=== PATIENT | male | born 1990 | race Hispanic/Latino ===

== ENCOUNTER 2018-01-05 20:12 | Emergency (ER) | payer MEDICAID ==
[2018-01-05 21:10] LABS: RAPID GROUP A STREP NEGATIVE (NEGATIVE)
== END 2018-01-05 21:24 | disposition home or self-care (01) ==
LOC: EDH 20:12
DX: J01.10 Acute frontal sinusitis, unspecified (principal); J30.9 Allergic rhinitis, unspecified
CPT/HCPCS: 71045; 87804; 87880

== ENCOUNTER 2018-05-26 13:16 | Emergency (ER) | payer MEDICAID, OTHER ==
[2018-05-26] MEDS ORDERED: ACETAMINOPHEN EXTRA STRENGTH 500 MG TABLET ONE (13:29)
[2018-05-26 14:11] LABS: RAPID GROUP A STREP NEGATIVE (NEGATIVE)
== END 2018-05-26 14:30 | disposition home or self-care (01) ==
LOC: EDH 13:16
DX: B34.9 Viral infection, unspecified (principal); J06.9 Acute upper respiratory infection, unspecified
CPT/HCPCS: 87804; 87880

== ENCOUNTER 2019-03-28 09:42 | Emergency (ER) | payer OTHER | END 2019-03-28 10:29 | disposition home or self-care (01) | LOC: EDH 09:42 | DX: H00.024 Hordeolum internum left upper eyelid (principal) | CPT/HCPCS: 99281 ==

== ENCOUNTER 2022-03-30 14:53 | Emergency (ER) | payer OTHER ==
[~2022-03-30] VITALS: Ht 162.6 cm; Wt 79.4 kg
[2022-03-30 15:35] LABS: BASOPHILS % (AUTO) 0.2 % (0.0-5.0); EOSINOPHILS % (AUTO) 1.6 % (0.0-8.0); HEMATOCRIT 45.6 % (42-54); LYMPHOCYTES % (AUTO) 22.6 % (21.0-51.0); MEAN CORPUSCULAR HEMOGLOBIN 30.2 pg (27.0-33.0); MEAN CORPUSCULAR HGB CONC 32.9 g/dL (32.0-36.0); MEAN CORPUSCULAR VOLUME 91.8 fL (79-99); MONOCYTES % (AUTO) 20.1 % (3.0-13.0); NEUTROPHILS % (AUTO) 55.1 % (40.0-77.0); PLATELET COUNT (AUTO) 241 K/uL (130-400); RED BLOOD CELL COUNT(AUTO) 4.97 MIL/uL (4.50-6.20); RED CELL DISTRIBUTION WIDTH 12.9 % (11.0-15.5); WHITE BLOOD COUNT (AUTO) 4.5 K/uL (4.8-10.8)
[2022-03-30 15:39] LABS: APPEARANCE,URINE Clear (CLEAR); BILIRUBIN,URINE Negative (NEGATIVE); COLOR,URINE Yellow (YELLOW); GLUCOSE, URINE (UA) Negative (NEGATIVE); KETONES,URINE Negative (NEGATIVE); LEUKOCYTE ESTERASE ,URINE Negative (NEGATIVE); NITRATE,URINE Negative (NEGATIVE); OCCULT BLOOD,URINE Trace (NEGATIVE); PROTEIN,URINE Negative (NEGATIVE); UROBILINOGEN,URINE 0.2 mg/dL (0.2-1.0)
[2022-03-30 15:51] LABS: BACTERIA,URINE Rare /HPF (None Seen); CARBON DIOXIDE 22 mmol/L (21-32); CHLORIDE 103 mmol/L (101-111); CREATININE 0.9 mg/dL (0.5-1.5); GLOMERULAR FILTR. RATE CALC 103 mL/min (>60); GLUCOSE,RANDOM 95 mg/dL (70-105); MUCUS,URINE Few LPF (None Seen); POTASSIUM 3.5 mmol/L (3.5-5.1); SODIUM SERUM 136 mmol/L (136-145); SQUAMOUS EPITHELIAL CELL,UR Rare /HPF (0-2); UREA NITROGEN, BLOOD 17 mg/dL (7-18); WBC,URINE 0-1 /HPF (0-1)
[2022-03-30 15:54] LABS: ALANINE AMINOTRANSFERASE 31 U/L (12-78); ASPARTATE AMINOTRANSFERASE 22 U/L (10-37); BILIRUBIN,TOTAL 0.3 mg/dL (0.2-1.0); TOTAL PROTEIN, SERUM 7.6 g/dL (6.0-8.3)
[2022-03-30 16:02] LABS: LIPASE < 50 U/L (114-286)
[2022-03-30 16:51] VITALS: BP 118/89
[2022-03-31] MEDS ORDERED: AZIT250T9 PO (08:13)
[2022-03-31] MEDS ORDERED: LOPE2CAP PO (08:13)
[2022-03-31] MEDS ORDERED: ONDA-104 PO (08:13)
== END 2022-03-30 17:33 | disposition home or self-care (01) ==
LOC: EDH 14:53
DX: A08.4 Viral intestinal infection, unspecified (principal)
CPT/HCPCS: 36415; 80053; 81001; 83690; 85025; 87804

== ENCOUNTER 2022-03-31 03:38 | Emergency (ER) | payer OTHER ==
[~2022-03-31] VITALS: Ht 162.6 cm; Wt 83.9 kg
[2022-03-31] MEDS ORDERED: ONDANSETRON 4MG INJ ONE (04:13)
[2022-03-31] MEDS ORDERED: MORPHINE 4 MG SYG ONE (04:13)
[2022-03-31 04:17] LABS: BASOPHILS % (AUTO) 0.2 % (0.0-5.0); EOSINOPHILS % (AUTO) 0.5 % (0.0-8.0); HEMATOCRIT 41.7 % (42-54); LYMPHOCYTES % (AUTO) 5.3 % (21.0-51.0); MEAN CORPUSCULAR HEMOGLOBIN 31.4 pg (27.0-33.0); MEAN CORPUSCULAR HGB CONC 34.5 g/dL (32.0-36.0); MEAN CORPUSCULAR VOLUME 90.8 fL (79-99); MONOCYTES % (AUTO) 6.5 % (3.0-13.0); NEUTROPHILS % (AUTO) 87.3 % (40.0-77.0); PLATELET COUNT (AUTO) 217 K/uL (130-400); RED BLOOD CELL COUNT(AUTO) 4.59 MIL/uL (4.50-6.20); WHITE BLOOD COUNT (AUTO) 8.3 K/uL (4.8-10.8)
[2022-03-31 04:18] LABS: APPEARANCE,URINE Clear (CLEAR); BILIRUBIN,URINE Negative (NEGATIVE); COLOR,URINE Yellow (YELLOW); GLUCOSE, URINE (UA) Negative (NEGATIVE); KETONES,URINE Negative (NEGATIVE); LEUKOCYTE ESTERASE ,URINE Negative (NEGATIVE); NITRATE,URINE Negative (NEGATIVE); OCCULT BLOOD,URINE Moderate (NEGATIVE); PROTEIN,URINE Negative (NEGATIVE)
[2022-03-31] MEDS ORDERED: ONDANSETRON 4MG INJ IVP ONE (04:30)
[2022-03-31] MEDS ORDERED: 0.9%NACL 1000ML 1,000 ML IV SCH (04:30)
[2022-03-31] MEDS ORDERED: MORPHINE 4 MG SYG IVP ONE (04:30)
[2022-03-31 04:35] LABS: CARBON DIOXIDE 21 mmol/L (21-32); CHLORIDE 103 mmol/L (101-111); CREATININE 0.9 mg/dL (0.5-1.5); GLOMERULAR FILTR. RATE CALC 103 mL/min (>60); GLUCOSE,RANDOM 119 mg/dL (70-105); POTASSIUM 3.2 mmol/L (3.5-5.1); SODIUM SERUM 136 mmol/L (136-145); UREA NITROGEN, BLOOD 18 mg/dL (7-18)
[2022-03-31 04:59] LABS: LIPASE < 50 U/L (114-286)
[2022-03-31] MEDS ORDERED: POTASSIUM BICARB/CIT AC 25 MEQ TABLET.EFF PO ONE (05:30)
[2022-03-31 06:50] VITALS: BP 104/60
[2022-03-31] MEDS ORDERED: LOPERAMIDE HCL 2 MG CAP PO ONE (07:42)
[2022-03-31] MEDS ORDERED: AZITHROMYCIN 250 MG TABLET PO ONE (07:45)
[2022-03-31] MEDS ORDERED: AZITHROMYCIN 250 MG TABLET PO SCH (08:00)
[2022-03-31] MEDS ORDERED: LOPERAMIDE HCL 2 MG CAP PO SCH (08:00)
[2022-03-31] MEDS ORDERED: ONDA-104 PO (08:13)
[2022-03-31] MEDS ORDERED: AZIT250T9 PO (08:13)
[2022-03-31] MEDS ORDERED: LOPE2CAP PO (08:13)
== END 2022-03-31 08:20 | disposition home or self-care (01) ==
LOC: EDH 03:38
DX: A09 Infectious gastroenteritis and colitis, unspecified (principal); I10 Essential (primary) hypertension
CPT/HCPCS: 36415; 80048; 81003; 83690; 85025; 96361 ×2; 96374; 96375; 99284; J2270; J2405; J7030

== ENCOUNTER 2022-05-01 22:52 | Emergency (ER) | payer OTHER ==
[~2022-05-01] VITALS: Ht 162.6 cm; Wt 92.1 kg
[~2022-05-01 22:52] MED LIST: AZIT250T9 PO; LOPE2CAP PO; ONDA-104 PO
[2022-05-02] MEDS ORDERED: IBUPROFEN 600 MG TABLET PO ONE
[2022-05-02] MEDS ORDERED: CETI10TA57 PO (00:13)
[2022-05-02] MEDS ORDERED: IBUP-2070 PO (00:13)
[2022-05-02] MEDS ORDERED: ASCO500T19 PO (00:13)
[2022-05-02 00:21] VITALS: BP 126/78
== END 2022-05-02 00:27 | disposition home or self-care (01) ==
LOC: EDH 22:52
DX: U07.1 COVID-19 (principal)
CPT/HCPCS: 87635; 87804 ×2; 99283; C9803

== ENCOUNTER 2022-06-27 14:56 | Emergency (ER) | payer OTHER ==
[~2022-06-27] VITALS: Ht 165.1 cm; Wt 90.7 kg
[~2022-06-27 14:56] MED LIST changes: +ASCO500T19 PO; +CETI10TA57 PO; +IBUP-2070 PO
[2022-06-27 15:18] LABS: HEMATOCRIT 44.6 % (42-54); MEAN CORPUSCULAR HEMOGLOBIN 31.3 pg (27.0-33.0); MEAN CORPUSCULAR HGB CONC 34.8 g/dL (32.0-36.0); MEAN CORPUSCULAR VOLUME 90.1 fL (79-99); RED BLOOD CELL COUNT(AUTO) 4.95 MIL/uL (4.50-6.20); WHITE BLOOD COUNT (AUTO) 5.7 K/uL (4.8-10.8)
[2022-06-27 15:26] LABS: CREATININE 0.9 mg/dL (0.5-1.5); POTASSIUM 3.5 mmol/L (3.5-5.1)
[2022-06-27] MEDS ORDERED: DiphenhydrAMINE HCL 50 MG/ML VIAL IV ONE (15:30)
[2022-06-27] MEDS ORDERED: METOCLOPRAMIDE 10 MG/2 ML VIAL IVP ONE (15:30)
[2022-06-27] MEDS ORDERED: KETOROLAC 15MG/ML VIAL (15MG/ML) IV ONE (15:30)
[2022-06-27] MEDS ORDERED: 0.9% NACL 500ML IV.SOLN 500 ML IV ONE (15:30)
[2022-06-27] MEDS ORDERED: CEPH500B PO (15:32)
[2022-06-27] MEDS ORDERED: PHEN-847 PO (15:32)
[2022-06-27 15:40] LABS: APPEARANCE,URINE CLEAR (CLEAR); BILIRUBIN,URINE NEGATIVE (NEGATIVE); COLOR,URINE YELLOW (YELLOW); GLUCOSE, URINE (UA) NEGATIVE (NEGATIVE); KETONES,URINE NEGATIVE (NEGATIVE); LEUKOCYTE ESTERASE ,URINE NEGATIVE (NEGATIVE); NITRATE,URINE NEGATIVE (NEGATIVE); OCCULT BLOOD,URINE SMALL (NEGATIVE); PROTEIN,URINE NEGATIVE (NEGATIVE)
[2022-06-27 15:59] LABS: BACTERIA,URINE None Seen /HPF (None Seen); WBC,URINE 0-1 /HPF (0-1)
[2022-06-27 16:00] LABS: SQUAMOUS EPITHELIAL CELL,UR Rare /HPF (0-2)
[2022-06-27] MEDS ORDERED: CYCL5TAB PO (16:08)
[2022-06-27 16:11] VITALS: BP 125/68
== END 2022-06-27 16:20 | disposition home or self-care (01) ==
LOC: EDH 14:56
DX: R51.9 Headache, unspecified (principal); Z20.822 Contact with and (suspected) exposure to COVID-19; Z79.1 Long term (current) use of non-steroidal anti-inflammatories (NSAID); Z79.899 Other long term (current) drug therapy
CPT/HCPCS: 99284; 96374; 96375; 87635; 96361; 80048; 85027; 81001; 36415; C9803; J7040; J1200; J2765; J1885